=== PATIENT | male | born 1960 | race Caucasian/White ===

== ENCOUNTER 2019-02-01 18:40 | Emergency (ER) | payer SELFPAY ==
--- OUTSIDE RECORDS SUMMARY | 2019-02-01 18:42 | XMS REPORT ---
:1960 [facility] Address [address] [place] [address] Dr. Azevedo [address] [place] [id number] Care Team Providers Name Role Phone Unavailable Unavailable Unavailable Problems This patient has no known problems. Allergies, Adverse Reactions, Alerts This patient has no known allergies or adverse reactions. Medications This patient has no known medications.
--- OUTSIDE RECORDS SUMMARY | 2019-02-01 18:42 | XMS REPORT | Continuity of Care Document ---
:1960 Author Organization [facility] Care Team Providers Name Role Phone WESLEY AUGUSTINE Primary Care Physician Unavailable Insurance Providers Payer Name Policy Number Subscriber Name Relationship MEDICAID PENDING HOLLIE LIRA SELF/SAME PATIENT [employer] PENDING HOLLIE LIRA SELF/SAME PATIENT Chief Complaint and Reason for Visit Reason for Visit INSECT STINGS ON HAND/LEG/SHOULDER Problems No problem information available. Medications No medication information available. Social History No social history. Hospital Discharge Instructions No hospital discharge instructions. Plan of Care Discharge Date 07/22/18 Disposition HOME/SELF CARE Prescriptions See Medications Section Functional Status No functional status results. Allergies, Adverse Reactions, Alerts No allergy information available. Immunizations No Known History of Immunizations. Vital Signs No Known Vital Signs Results. Results No known relevant diagnostic tests, laboratory data and/or discharge summary. Procedures No Known History of Procedures. Encounters Encounter Location Arrival/Admit Date Discharge/Depart Date Attending Provider Departed [place] 07/22/18 7:46pm 07/22/18 10:48pm Rickie Grier MD [facility]
[2019-02-01 19:57] LABS: Protime INR 0.89
[2019-02-01 19:58] LABS: Absolute Lymphocytes (CBC) 1.2 K/uL (0.7-4.9); Absolute Monocytes 0.4 K/uL (0.1-1.3); Absolute Neutrophil 4.1 K/uL (1.8-8.0); Eosinophils % 2.7 % (0-4.4); MPV 8.5 fL (7.6-11.3); Monocytes % 6.4 % (3.3-12.3); RBC Red Blood Cell Count 5.05 M/uL (4.33-5.43)
[2019-02-01 20:13] LABS: Bilirubin Total 0.4 mg/dL (0.2-1.0); Potassium 4.2 mmol/L (3.5-5.1); Protein, Total 7.2 g/dL (6.4-8.2)
--- NOTE | 2019-02-01 21:09 | RAD REPORT ---
EXAM DESCRIPTION: US - Extrem Venous W Compress Jose Guadalupe - 02/01/2019 8:58 pm CLINICAL HISTORY: Leg pain and swelling COMPARISON: None. TECHNIQUE: Real-time sonographic evaluation of the bilateral lower extremity common femoral, superfi cial femoral, popliteal and posterior tibial veins was performed. FINDINGS: Normal compressibility, flow augmentation, phasic flow and spontaneous flow are identified in the left and right lower extremity common femoral, superficial femoral, popliteal and posterior t ibial veins. No intraluminal filling defects seen. IMPRESSION: No DVT in either lower extremity.
--- NOTE | 2019-02-01 21:12 | EDPHYS ---
Physician Documentation [facility] Name: Jun Byrne Age: 59 yrs Sex: Male : 1960 Arrival Date: 02/01/2019 Time: 18:42 Bed 23 Private MD: ED Physician Abraham Leslie HPI: 02/01 19:16 This 59 yrs old Male presents to ER via Ambulatory with complaints of Leg jmm Pain. 19:16 The patient presents with pain. Onset: The symptoms/episode began/occurred gradually, 4 jmm day(s) ago. Modifying factors: the symptoms are aggravated by. This is a 59 year old male that presents to the ED with complaints of spasms to his legs worse while trying to rest. Symptoms began this past Sunday. Patient also complaints of mild swelling. Patient recently returned from a 6 hour round trip. Patient denies chest pain or shortness of breath. . Historical: - Allergies: 19:05 No Known Allergies; aj1 - Home Meds: 19:05 None [Active]; aj1 - PMHx: 19:05 None; aj1 - PSHx: 19:05 colon surgery; aj1 19:06 Hernia repair; aj1 - Immunization history:: Flu vaccine is not up to date. - Social history:: Smoking status: Patient/guardian denies using tobacco. - Ebola Screening: : Patient denies travel to an Ebola-affected area in the 21 days before illness onset. ROS: 19:16 Constitutional: Negative for fever, chills, and weight loss. jmm 19:16 MS/extremity: Positive for pain, swelling. 19:16 All other systems are negative. Exam: 19:16 Head/Face: atraumatic. Eyes: EOMI, no conjunctival erythema appreciated ENT: Moist jmm Mucus Membranes Neck: Trachea midline, Supple Chest/axilla: Normal chest wall appearance and motion. Cardiovascular: Regular rate and rhythm. No edema appreciated Respiratory: Normal respirations, no respiratory distress appreciated Abdomen/GI: Non distended, soft Back: Normal ROM Skin: General appearance color normal 19:16 Constitutional: The patient appears in no acute distress, alert, awake. 19:16 Musculoskeletal/extremity: ROM: intact in all extremities, DVT Exam: no pain, no swelling, no tenderness, no appreciated bluish discoloration, no erythema, no increased warmth, full dorsalis pulse bilaterally. 19:16 Skin: Appearance: Color: normal in color. 19:16 Neuro: Orientation: is normal, Mentation: is normal, Memory: is normal, Gait: is steady. 19:16 Psych: Behavior/mood is pleasant, cooperative. Vital Signs: 19:06 BP 163 / 99; Pulse 78; Resp 18; Temp 98.3(O); Pulse Ox 97% on R/A; Weight 97.52 kg (R); aj1 Height 6 ft. 0 in. (182.88 cm) (R); Pain 10/10; 20:00 BP 144 / 90; Pulse 68; Resp 19 S; Pulse Ox 98% on R/A; ca1 20:45 BP 131 / 85; Pulse 67; Resp 19 S; Pulse Ox 98% on R/A; ca1 21:15 BP 129 / 72; Pulse 63; Resp 19 S; Pulse Ox 97% on R/A; ca1 19:06 Body Mass Index 29.16 (97.52 kg, 182.88 cm) aj1 MDM: 19:[address] [facility] 21:10 Data reviewed: vital signs, nurses notes. Counseling: I had a detailed discussion with alverto the patient and/or guardian regarding: the historical points, exam findings, and any diagnostic results supporting the discharge/admit diagnosis, lab results, radiology results, the need for outpatient follow up, to return to the emergency department if symptoms worsen or persist or if there are any questions or concerns that arise at home. ED course: Patient is alert and non toxic in appearance in the ED. Patient has no complaints of SOB or chest pain. Patient will be prescribed muscle relaxers and is advised to follow up with pcp or return to the ED if symptoms worsen. Patient understood and agrees with the plan of care. . 02/01 19:28 Order name: CBC with Diff; Complete Time: 20:00 [facility] 02/01 19:28 Order name: CMP; Complete Time: 20:14 [facility] 02/01 19:28 Order name: US Extremity Venous W Compression Jose Guadalupe; Complete Time: 21:10 [facility] 02/01 19:28 Order name: Saline Lock; Complete Time: 19:45 [facility] 02/01 19:28 Order name: CPK; Complete Time: 20:14 [facility] 02/01 19:28 Order name: PT-INR; Complete Time: 20:00 alverto Administered Medications: No medications were administered Disposition: 02/02 19:29 Co-signature as Attending Physician, Abraham Leslie MD. Disposition: 02/01/19 21:11 Discharged to Home. Impression: Pain in left leg, Pain in right leg. - Condition is Stable. - Discharge Instructions: Musculoskeletal Pain, Form - Return To Work. - Prescriptions for orphenadrine citrate 100 mg Oral Tablet Sustained Release - take 1 tablet by ORAL route 2 times per day As needed; 20 tablet. - Medication Reconciliation Form, Thank You Letter, Antibiotic Education, Prescription Opioid Use form. - Work release form (02/01/19 21:32). ca1 - Follow up: Private Physician; When: 2 - 3 days; Reason: Recheck today's complaints, Continuance of care, Re-evaluation by your physician. Signatures: Dispatcher [employer] EDMere Snider RN RN aj1 Tavares Suero PA PA jmm Starr, Gregory, MD MD Chloé Pastrana RN RN ca1 Corrections: (The following items were deleted from the chart) 02/01 21:27 21:11 02/01/2019 21:11 Discharged to Home. Impression: Pain in left leg; Pain in right ca1 leg. Condition is Stable. Forms are Medication Reconciliation Form, Thank You Letter, Antibiotic Education, Prescription Opioid Use. Follow up: Private Physician; When: 2 - 3 days; Reason: Recheck today's complaints, Continuance of care, Re-evaluation by your physician. alverto
--- NOTE | 2019-02-01 21:12 | ER ---
Nurse's Notes [facility] Name: Jun Byrne Age: 59 yrs Sex: Male : 1960 Arrival Date: 02/01/2019 Time: 18:42 Bed 23 Private MD: Diagnosis: Pain in left leg;Pain in right leg Presentation: 02/01 19:04 Presenting complaint: Patient states: Cramping in both legs for the past week , reports aj1 that the cramping is worse in the left leg. Also reports muscle spasms. Reports that the pain is making it difficult to sleep. w. Transition of care: patient was not received from another setting of care. Onset of symptoms was January 27, 2018. Risk Assessment: Do you want to hurt yourself or someone else? Patient reports no desire to harm self or others. Initial Sepsis Screen: Does the patient meet any 2 criteria? No. Patient's initial sepsis screen is negative. Does the patient have a suspected source of infection? No. Patient's initial sepsis screen is negative. Care prior to arrival: None. 19:04 Method Of Arrival: Ambulatory aj 19:04 Acuity: RAYMOND 4 aj1 Triage Assessment: 19:06 General: Appears in no apparent distress. uncomfortable, Behavior is calm, cooperative, aj1 appropriate for age. Pain: Complains of pain in right leg and left leg. Neuro: Level of Consciousness is awake, alert, obeys commands, Oriented to person, place, time, situation. Cardiovascular: Patient's skin is warm and dry. Respiratory: Airway is patent Respiratory effort is even, unlabored, Respiratory pattern is regular, symmetrical. Historical: - Allergies: 19:05 No Known Allergies; aj1 - Home Meds: 19:05 None [Active]; aj1 - PMHx: 19:05 None; aj1 - PSHx: 19:05 colon surgery; aj1 19:06 Hernia repair; aj1 - Immunization history:: Flu vaccine is not up to date. - Social history:: Smoking status: Patient/guardian denies using tobacco. - Ebola Screening: : Patient denies travel to an Ebola-affected area in the 21 days before illness onset. Screenin:10 Abuse screen: Denies threats or abuse. Denies injuries from another. ca1 19:10 Nutritional screening: No deficits noted. Tuberculosis screening: No symptoms or risk ca1 factors identified. Fall Risk IV access (20 points). Assessment: 19:10 General: Appears in no apparent distress. comfortable, Behavior is calm, cooperative, ca1 appropriate for age. Pain: Complains of pain in left leg and right leg Pain radiates to R and L inner thigh Pain currently is 7 out of 10 on a pain scale. at worst was 10 out of 10 on a pain scale. Pain began a week ago. Neuro: Level of Consciousness is awake, alert, obeys commands, Oriented to person, place, time, situation. Cardiovascular: Heart tones S1 S2 present Capillary refill < 3 seconds Patient's skin is warm and dry. Respiratory: Airway is patent Respiratory effort is even, unlabored, Respiratory pattern is regular, symmetrical, Breath sounds are clear bilaterally. GI: No deficits noted. No signs and/or symptoms were reported involving the gastrointestinal system. : No deficits noted. No signs and/or symptoms were reported regarding the genitourinary system. EENT: No deficits noted. No signs and/or symptoms were reported regarding the EENT system. Derm: Skin is intact, is healthy with good turgor, Skin is pink, warm \T\ dry. Musculoskeletal: Circulation, motion, and sensation intact. Capillary refill < 3 seconds. 20:00 Reassessment: Patient appears in no apparent distress at this time. Patient and/or ca1 family updated on plan of care and expected duration. Pain level reassessed. Patient is alert, oriented x 3, equal unlabored respirations, skin warm/dry/pink. 20:20 Reassessment: US at bedside. ca1 21:15 Reassessment: Patient appears in no apparent distress at this time. Patient is alert, ca1 oriented x 3, equal unlabored respirations, skin warm/dry/pink. Vital Signs: 19:06 BP 163 / 99; Pulse 78; Resp 18; Temp 98.3(O); Pulse Ox 97% on R/A; Weight 97.52 kg (R); aj1 Height 6 ft. 0 in. (182.88 cm) (R); Pain 10/10; 20:00 BP 144 / 90; Pulse 68; Resp 19 S; Pulse Ox 98% on R/A; ca1 20:45 BP 131 / 85; Pulse 67; Resp 19 S; Pulse Ox 98% on R/A; ca1 21:15 BP 129 / 72; Pulse 63; Resp 19 S; Pulse Ox 97% on R/A; ca1 19:06 Body Mass Index 29.16 (97.52 kg, 182.88 cm) 1 ED Course: 18:42 Patient arrived in ED. as 19:05 Triage completed. aj1 19:06 Arm band placed on Patient placed in an exam room. aj1 19:09 Chloé Pastrana, RN is Primary Nurse. ca1 19:10 Patient has correct armband on for positive identification. Placed in gown. Bed in low ca1 position. Call light in reach. Side rails up X 1. Pulse ox on. NIBP on. Warm blanket given. 19:14 Tavares Suero PA is PHCP. [facility] 19:14 Abraham Leslie MD is Attending Physician. [facility] 19:40 Inserted saline lock: 20 gauge in right antecubital area, using aseptic technique. ca1 Blood collected. 20:55 Ultrasound completed. Patient tolerated well. sg3 20:58 US Extremity Venous W Compression Jose Guadalupe In Process Unspecified. EDMS 21:27 No provider procedures requiring assistance completed. IV discontinued, intact, ca1 bleeding controlled, No redness/swelling at site. Pressure dressing applied. Administered Medications: No medications were administered Outcome: 21:11 Discharge ordered by MD. [facility] 21:27 Discharged to home ambulatory. ca1 21:27 Condition: stable 21:27 Discharge instructions given to patient, Instructed on discharge instructions, follow up and referral plans. medication usage, Demonstrated understanding of instructions, follow-up care, medications, Prescriptions given X 1. 21:27 Patient left the ED. ca1 Signatures: Dispatcher [employer] EDMS Mere Mckeon RN RN aj1 Tavares Suero PA PA jmm Martinez, Amelia as Godinez, Sarah sg3 Chloé Pastrana, DARLENE RN ca1 Corrections: (The following items were deleted from the chart) 20:32 19:10 Fall Risk ca1 ca1 20:35 19:10 Reassessment: US at bedside ca1 ca1
== END 2019-02-01 21:27 | disposition home or self-care (01) ==
LOC: ER 18:40
DX: M79.605 Pain in left leg (principal); M79.604 Pain in right leg
CPT/HCPCS: 36415; 80053; 82550; 85025; 85610; 93970; 99284

== ENCOUNTER 2019-05-22 15:43 | Emergency (ER) | payer OTHER, SELFPAY ==
--- OUTSIDE RECORDS SUMMARY | 2019-05-22 15:45 | XMS REPORT ---
:1960 [facility] Address [address] [place] [address] Dr. Azevedo [address] [place] [id number] Care Team Providers Name Role Phone Unavailable Unavailable Unavailable Problems This patient has no known problems. Allergies, Adverse Reactions, Alerts This patient has no known allergies or adverse reactions. Medications This patient has no known medications.
[2019-05-22] MEDS ORDERED: IPRATROPIUM BROM 0.5MG/2.5ML ONE (16:29)
[2019-05-22] MEDS ORDERED: BENZONATATE 100 MG CAP PO ONE (16:29)
[2019-05-22] MEDS ORDERED: ALBUTEROL 2.5 MG/3 ML NEB SOL ONE (16:29)
--- NOTE | 2019-05-22 16:47 | RAD REPORT ---
EXAM DESCRIPTION: Dell Medrano (2 Views)05/22/2019 4:40 pm CLINICAL HISTORY: Cough COMPARISON: None FINDINGS: The lungs appear clear of acute infiltrate. The heart is normal size IMPRESSION: No acute abnormalities displayed
[2019-05-22 17:54] LABS: Absolute Lymphocytes (CBC) 2.6 K/uL (0.7-4.9); Basophils % 0.9 % (0-1.3); Hematocrit 46.5 % (39.6-49.0); Lymphocytes % 36.2 % (15.3-44.8); MPV 8.3 fL (7.6-11.3); RBC Red Blood Cell Count 5.12 M/uL (4.33-5.43)
[2019-05-22] MEDS ORDERED: PROMETHAZINE 6.25 MG/5 ML OSYR PO ONE (18:00)
[2019-05-22 18:08] LABS: BUN Blood Urea Nitrogen 14 mg/dL (7-18); Bicarbonate 27 mmol/L (21-32); Glucose Level 105 mg/dL (74-106); Potassium 3.7 mmol/L (3.5-5.1); Sodium Level 140 mmol/L (136-145); Troponin (Emerg Dept Use Only) < 0.02 ng/mL (0.0-0.045)
--- NOTE | 2019-05-22 18:29 | ER ---
Nurse's Notes [facility] Name: Jun Byrne Age: 59 yrs Sex: Male : 1960 Arrival Date: 05/22/2019 Time: 15:45 Bed 14 Private MD: Erik Dennison T Diagnosis: Cough;Bronchitis, not specified as acute or chronic Presentation: 05/22 15:48 Presenting complaint: Patient states: i have this chest pain and SOB for a week now and hj been treated for influenza and pneumonia with azithromycin and cefuroxime and returned to work yesterday, today i still doesn't feel good and still having SOB; reports fever;. Transition of care: patient was not received from another setting of care. Onset of symptoms was May 22, 2019. Risk Assessment: Do you want to hurt yourself or someone else? Patient reports no desire to harm self or others. Initial Sepsis Screen: Does the patient meet any 2 criteria? No. Patient's initial sepsis screen is negative. Does the patient have a suspected source of infection? No. Patient's initial sepsis screen is negative. Care prior to arrival: None. 15:48 Method Of Arrival: Ambulatory 15:48 Acuity: RAYMOND 3 hj Historical: - Allergies: 15:52 No Known Allergies; hj - PMHx: 15:52 None; hj - PSHx: 15:52 colon surgery; Hernia repair; hj - Immunization history:: Adult Immunizations up to date. - Social history:: Smoking status: Patient/guardian denies using tobacco. - Ebola Screening: : Patient negative for fever greater than or equal to 101.5 degrees Fahrenheit, and additional compatible Ebola Virus Disease symptoms Patient denies exposure to infectious person Patient denies travel to an Ebola-affected area in the 21 days before illness onset No symptoms or risks identified at this time. Screenin:05 Abuse screen: Denies threats or abuse. Denies injuries from another. Nutritional aj screening: No deficits noted. Tuberculosis screening: No symptoms or risk factors identified. Fall Risk None identified. Assessment: 16:04 General: Appears in no apparent distress. comfortable, Behavior is calm, cooperative, aj appropriate for age. Neuro: Level of Consciousness is awake, alert, obeys commands, Oriented to person, place, time, situation, Appropriate for age. Cardiovascular: Capillary refill < 3 seconds in bilateral fingers Patient's skin is warm and dry. Respiratory: Reports shortness of breath cough that is productive, persistent pain with cough. Derm: Skin is intact, is healthy with good turgor, Skin is pink, warm \T\ dry. normal. 17:43 Reassessment: Patient appears in no apparent distress at this time. No changes from aj previously documented assessment. Patient and/or family updated on plan of care and expected duration. Pain level reassessed. Patient is alert, oriented x 3, equal unlabored respirations, skin warm/dry/pink. Patient states feeling better. 18:38 Reassessment: Patient appears in no apparent distress at this time. No changes from aj previously documented assessment. Patient and/or family updated on plan of care and expected duration. Pain level reassessed. Patient is alert, oriented x 3, equal unlabored respirations, skin warm/dry/pink. Patient denies pain at this time. Patient states feeling better. Patient states symptoms have improved. Vital Signs: 15:52 BP 146 / 85; Pulse 73; Resp 20; Temp 98.1(TE); Pulse Ox 100% on R/A; Weight 99.79 kg; hj Height 5 ft. 11 in. (180.34 cm); Pain 5/10; 16:19 BP 121 / 87; Pulse 72; Resp 22; Pulse Ox 100% on R/A; aj 17:43 BP 124 / 78; Pulse 87; Resp 17; Pulse Ox 97% on R/A; aj 15:52 Body Mass Index 30.68 (99.79 kg, 180.34 cm) ED Course: 15:45 Patient arrived in ED. cl3 15:46 Erik Dennison MD is Private Physician. cl3 15:51 Austin Alonzo MD is Attending Physician. kdr 15:52 Triage completed. hj 15:52 Arm band placed on right wrist. hj 15:56 Lisa Ghosh, DARLENE is Primary Nurse. aj 16:05 Patient has correct armband on for positive identification. Pulse ox on. NIBP on. aj 16:09 EKG done, by ep tech. reviewed by Austin Alonzo MD. at1 16:42 Chest Pa And Lat (2 Views) XRAY In Process Unspecified. EDMS 17:43 Inserted saline lock: 20 gauge in right antecubital area, using aseptic technique. aj Blood collected. Patient maintains SpO2 saturation greater than 95% on room air. 17:56 EKG done, by ED staff, reviewed by Austin Alonzo MD. formerly [facility], 1928–1983 18:27 Erik Dennison MD is Referral Physician. kdr 18:38 No provider procedures requiring assistance completed. IV discontinued, intact, aj bleeding controlled, No redness/swelling at site. Pressure dressing applied. Administered Medications: 16:18 Drug: Tessalon Perle 100 mg Route: PO; aj 17:46 Follow up: Response: Marked relief of symptoms aj 16:18 Drug: Albuterol - atroVENT (3:1) (2.5 mg - 0.5 mg) 3 ml Route: Nebulizer; aj 17:45 Follow up: Response: Marked relief of symptoms aj 17:43 Drug: Phenergan-Codeine Liquid (6.25mg - 10mg / 5mL) 10 ml Route: PO; aj 18:39 Follow up: Response: No adverse reaction; Marked relief of symptoms aj Outcome: 18:28 Discharge ordered by . kdr 18:38 Discharged to home ambulatory. aj 18:38 Condition: good 18:38 Discharge instructions given to patient, Instructed on discharge instructions, follow up and referral plans. medication usage, Demonstrated understanding of instructions, follow-up care, medications, Prescriptions given X 4. 18:39 Patient left the ED. aj Signatures: Dispatcher [employer] EDMS Lisa Ghosh, RN Austin Jones MD MD kdr Lisa Guajardo, quality internship EKG Tat1 Jaswinder Beltran RN RN hj Herrera, Deanna 3 Noemi Daniels cl3 Corrections: (The following items were deleted from the chart) 15:54 15:52 Pulse 73bpm; Resp 20bpm; Pulse Ox 100% RA; Temp 98.1F Temporal; 99.79 kg; Height hj 5 ft. 11 in.; BMI: 30.6; Pain 5/10; hj
--- NOTE | 2019-05-22 18:30 | EDPHYS ---
Physician Documentation [facility] Name: Jun Byrne Age: 59 yrs Sex: Male : 1960 Arrival Date: 05/22/2019 Time: 15:45 Bed 14 Private MD: Erik Dennison T ED Physician Austin Alonzo HPI: 05/22 17:26 This 59 yrs old Male presents to ER via Ambulatory with complaints of Chest kdr Pain, Shortness Of Breath. 17:26 The patient or guardian reports chest pain that is located primarily in the anterior kdr chest wall, bilaterally, chest diffusely. Onset: gradually, 1 week(s) ago. The pain does not radiate. Associated signs and symptoms: Pertinent positives: cough, shortness of breath, Pertinent negatives: abdominal pain, dizziness, headache, lower extremity pain, lower extremity swelling, lightheadedness, nausea, near syncope, palpitations, recent travel, syncope, vomiting. The chest pain is described as aching, sharp, With coughing. Duration: The patient or guardian reports multiple episodes, that are intermittent, that wax and wane, Associated with cough. Modifying factors: The symptoms are alleviated by Not coughing. Severity of pain: At its worst the pain was mild in the emergency department the pain is unchanged. The patient has not experienced similar symptoms in the past. The patient has been recently seen by a physician: The patient has been ill since the 15 of this month with URI s/s. He has been on several rounds of abx and is presently taking them. He continues to have coughing spell which has been keeping him up at night and contributing to poor sleep.. Historical: - Allergies: 15:52 No Known Allergies; hj - PMHx: 15:52 None; hj - PSHx: 15:52 colon surgery; Hernia repair; hj - Immunization history:: Adult Immunizations up to date. - Social history:: Smoking status: Patient/guardian denies using tobacco. - Ebola Screening: : Patient negative for fever greater than or equal to 101.5 degrees Fahrenheit, and additional compatible Ebola Virus Disease symptoms Patient denies exposure to infectious person Patient denies travel to an Ebola-affected area in the 21 days before illness onset No symptoms or risks identified at this time. ROS: 17:26 Constitutional: Negative for fever, chills, and weight loss, Eyes: Negative for injury, kdr pain, redness, and discharge, ENT: Negative for injury, pain, and discharge, Neck: Negative for injury, pain, and swelling, Cardiovascular: Negative for chest pain, palpitations, and edema, Abdomen/GI: Negative for abdominal pain, nausea, vomiting, diarrhea, and constipation, Back: Negative for injury and pain, : Negative for injury, bleeding, discharge, and swelling, MS/Extremity: Negative for injury and deformity, Skin: Negative for injury, rash, and discoloration, Neuro: Negative for headache, weakness, numbness, tingling, and seizure activity. Psych: Negative for depression, anxiety, suicide ideation, homicidal ideation, and hallucinations, Allergy/Immunology: Negative for hives, rash, and allergies, Endocrine: Negative for neck swelling, polydipsia, polyuria, polyphagia, and marked weight changes, Hematologic/Lymphatic: Negative for swollen nodes, abnormal bleeding, and unusual bruising. 17:26 Respiratory: Positive for cough, shortness of breath, on exertion. Negative for dyspnea on exertion, hemoptysis, orthopnea, pleurisy, sputum production. Exam: 17:26 Constitutional: This is a well developed, well nourished patient who is awake, alert, kdr and in no acute distress. Head/Face: Normocephalic, atraumatic. Eyes: Pupils equal round and reactive to light, extra-ocular motions intact. Lids and lashes normal. Conjunctiva and sclera are non-icteric and not injected. Cornea within normal limits. Periorbital areas with no swelling, redness, or edema. Neck: Trachea midline, no thyromegaly or masses palpated, and no cervical lymphadenopathy. Supple, full range of motion without nuchal rigidity, or vertebral point tenderness. No Meningismus. Chest/axilla: Normal chest wall appearance and motion. Nontender with no deformity. No lesions are appreciated. Cardiovascular: Regular rate and rhythm with a normal S1 and S2. No gallops, murmurs, or rubs. Normal PMI, no JVD. No pulse deficits. Respiratory: Lungs have equal breath sounds bilaterally, clear to auscultation and percussion. No rales, rhonchi or wheezes noted. No increased work of breathing, no retractions or nasal flaring. Abdomen/GI: Soft, non-tender, with normal bowel sounds. No distension or tympany. No guarding or rebound. No evidence of tenderness throughout. Back: No spinal tenderness. No costovertebral tenderness. Full range of motion. Skin: Warm, dry with normal turgor. Normal color with no rashes, no lesions, and no evidence of cellulitis. MS/ Extremity: Pulses equal, no cyanosis. Neurovascular intact. Full, normal range of motion. Neuro: Awake and alert, GCS 15, oriented to person, place, time, and situation. Cranial nerves II-XII grossly intact. Motor strength 5/5 in all extremities. Sensory grossly intact. Cerebellar exam normal. Normal gait. Psych: Awake, alert, with orientation to person, place and time. Behavior, mood, and affect are within normal limits. Vital Signs: 15:52 BP 146 / 85; Pulse 73; Resp 20; Temp 98.1(TE); Pulse Ox 100% on R/A; Weight 99.79 kg; hj Height 5 ft. 11 in. (180.34 cm); Pain 5/10; 16:19 BP 121 / 87; Pulse 72; Resp 22; Pulse Ox 100% on R/A; aj 17:43 BP 124 / 78; Pulse 87; Resp 17; Pulse Ox 97% on R/A; aj 15:52 Body Mass Index 30.68 (99.79 kg, 180.34 cm) MDM: 18:28 Patient medically screened. [facility] 05/22 17:25 Order name: CBC with Diff; Complete Time: 18:04 [facility] 05/22 17:25 Order name: Chem 7; Complete Time: 18:27 [facility] 05/22 16:19 Order name: Chest Pa And Lat (2 Views) XRAY; Complete Time: 16:55 05/22 17:25 Order name: Troponin (emerg Dept Use Only); Complete Time: 18:27 [facility] 05/22 15:54 Order name: EKG; Complete Time: 15:56 05/22 17:25 Order name: EKG - Nurse/Tech; Complete Time: 17:45 [facility] Administered Medications: 16:18 Drug: Tessalon Perle 100 mg Route: PO; aj 17:46 Follow up: Response: Marked relief of symptoms 16:18 Drug: Albuterol - atroVENT (3:1) (2.5 mg - 0.5 mg) 3 ml Route: Nebulizer; aj 17:45 Follow up: Response: Marked relief of symptoms aj 17:43 Drug: Phenergan-Codeine Liquid (6.25mg - 10mg / 5mL) 10 ml Route: PO; aj 18:39 Follow up: Response: No adverse reaction; Marked relief of symptoms aj Disposition: 05/22/19 18:28 Discharged to Home. Impression: Cough, Bronchitis, not specified as acute or chronic. - Condition is Stable. - Discharge Instructions: How to Use an Inhaler, Metered Dose Inhaler with Spacer, Acute Bronchitis, [id number], Upper Respiratory Infection, Adult, [id number]. - Prescriptions for Promethazine VC- Codeine 6.25-5-10 mg/5 mL Oral syrup - take 10 milliliter by ORAL route every 6 hours As needed as needed, not to exceed 30 mL in 24 hours; 200 milliliter. Tessalon Perles 100 mg Oral Capsule - take 1 capsule by ORAL route every 8 hours As needed; 15 capsule. Medrol (Raji) 4 mg Oral Tablets, Dose Pack - take 1 tablet by ORAL route as directed - follow package instructions; 1 packet. Albuterol Sulfate 90 mcg/actuation - inhale 1-2 puff by INHALATION route every 4-6 hours; 1 Inhaler. - Work release form, Medication Reconciliation Form, Thank You Letter, Prescription Opioid Use form. - Follow up: Erik Dennison MD; When: 2 - 3 days; Reason: If symptoms return, Further diagnostic work-up, Recheck today's complaints, Continuance of care, Re-evaluation by your physician. - Problem is new. - Symptoms have improved. Signatures: Dispatcher [employer] Lisa Martinez RN RN Austin Flower MD MD kdr Joaquin, Henry, RN RN Corrections: (The following items were deleted from the chart) 18:39 18:28 05/22/2019 18:28 Discharged to Home. Impression: Cough; Bronchitis, not specified aj as acute or chronic. Condition is Stable. Forms are Medication Reconciliation Form, Thank You Letter, Antibiotic Education, Prescription Opioid Use. Follow up: Erik Dennison; When: 2 - 3 days; Reason: If symptoms return, Further diagnostic work-up, Recheck today's complaints, Continuance of care, Re-evaluation by your physician. Problem is new. Symptoms have improved. kdr
--- NOTE | 2019-05-23 06:43 | EKG ---
Test Date: 2019-05-22 Test Time: 16:06:07 Regulatory Internship: ELIU MEASUREMENT RESULTS: Intervals: Rate: 73 IA: 178 QRSD: 82 QT: 368 QTc: 405 [place]: P: 82 IA: 178 QRS: 50 T: 66 INTERPRETIVE STATEMENTS: Normal sinus rhythm Normal ECG No previous ECG available for comparison Electronically Signed On 05-23-19 06:41:37 CDT by Jose Machado
--- NOTE | 2019-05-23 13:34 | EKG ---
Test Date: 2019-05-22 Test Time: 17:50:26 Cheese Supervisor: SUDEEP MEASUREMENT RESULTS: Intervals: Rate: 79 [place]: 162 QRSD: 82 QT: 388 QTc: 444 [place]: P: 69 [place]: 162 QRS: 24 T: 41 INTERPRETIVE STATEMENTS: Normal sinus rhythm Normal ECG Compared to ECG 05/22/2019 16:06:07 No significant changes Electronically Signed On 05-23-19 13:33:33 CDT by Jovon Solomon
== END 2019-05-22 18:39 | disposition home or self-care (01) ==
LOC: ER 15:43
DX: J40 Bronchitis, not specified as acute or chronic (principal)
CPT/HCPCS: 36415; 71046; 80048; 84484; 85025; 93005; 94640; 99285